=== PATIENT | female | born 1950 | race Two or more races ===

== ENCOUNTER 2020-05-11 18:59 | Emergency (ER) | payer OTHER, MEDICAID ==
[~2020-05-11] VITALS: Ht 152.4 cm; Wt 68.0 kg
[2020-05-11 19:28] VITALS: BP 125/62
== END 2020-05-11 20:01 | disposition home or self-care (01) ==
LOC: ER 18:59
DX: R10.2 Pelvic and perineal pain (principal); N81.4 Uterovaginal prolapse, unspecified; I10 Essential (primary) hypertension